=== PATIENT | male | born 1970 | race Caucasian/White ===

== ENCOUNTER 2019-12-31 10:40 | Emergency (ER) | payer OTHER, SELFPAY ==
[2019-12-31 10:47] VITALS: BP 136/79; PULSE 79; RESP 18; TEMP 36.7; O2SAT 97; BMI 34.3
--- NOTE | 2019-12-31 10:48 | CTR_ITS ---
PROCEDURE INFORMATION: Exam: CTA Right Lower Extremity With Contrast Exam date and time: 12/31/2019 10:52 AM Age: 49 years old Clinical indication: Injury or trauma; Other: Laceration; Foreign body involvement not specified; Injury date: Today; Injury details: 49-year-old gentleman was taken down a broken glass window and pushed it out. Part of the glass came back towards him and he reflexively kicked the glass. He sustained a cut to his right lower leg and according to the ambulance crew it appeared he had arterial bleeding. ; Additional info: Right leg cut injury-continued bleeding-art damage possible TECHNIQUE: Imaging protocol: CTA images of the Right lower extremity with intravenous contrast using CT angiography protocol. 3D rendering (Not supervised by radiologist): MIP reconstructed images were created by the technologist. Radiation optimization: All CT scans at this facility use at least one of these dose optimization techniques: automated exposure control; mA and/or kV adjustment per patient size (includes targeted exams where dose is matched to clinical indication); or iterative reconstruction. Contrast material: OMNI 350; Contrast volume: 95 ml; Contrast route: INTRAVENOUS (IV); COMPARISON: No relevant prior studies available. RADIATION DOSE METRICS: Total DLP (mGy-cm): 538.4 FINDINGS: Right femoral/popliteal arteries: No occlusion or significant stenosis. Right infrapopliteal arteries: The right posterior tibial artery appears to supply the forefoot. The right peroneal artery supplies the lateral hindfoot. Other arteries: Multiple foci of apparent (delayed images not obtained) contrast extravasation noted adjacent to the distal anterior tibial artery at the level of the injury with subsequent short segment occlusion (presumed transsection) of the anterior tibial artery with short segment reconstitution just above the level of the ankle, and reocclusion at the level of the ankle (series 203, image 87), with lack of identification of enhancement within the vessel in the foot. Early draining veins are present extending from the injury site to the proximal popliteal vein, the upper limits of the study. Bones/joints: Bony hypertrophy of the distal tibia above the distal tibiofibular articulation with pseudoarthrosis (series 3, image 176). Soft tissues: Saturated bandaging overlying the distal anterior lower leg. Mild motion blurring at this site of injury. Small sub dermal calcifications bilateral anterior lower [place]. [place] [address] IMPRESSION: 1. Arterial injury of the distal anterior tibial artery, with transsection/occlusions/reconstitution as described. 2. Active arterial contrast extravasation at the injury site. 3. Early draining veins at the arterial injury site suggesting small caliber arteriovenous fistula. Radiation Dose CTDIVOL = (mGy): DLP = 538.4 (mGy-cm)
[2019-12-31 11:13] LABS: Basophils # 0.1 10^3/uL (0.0-0.1); Eosinophils # 0.1 10^3/uL (0.0-0.8); Eosinophils % 1.5 %; Hematocrit 46.9 % (42.0-52.0); Hemoglobin 15.7 g/dL (11.7-16.6); Lymphocytes % 17.1 %; Mean Corpuscular HGB Conc 33.5 g/dL (30.0-36.0); Mean Corpuscular Hemoglobin 33.8 pg (28.0-34.0); Mean Corpuscular Volume 101.1 fL (80-94); Mean Platelet Volume 11.8 fL (7.4-10.4); Monocytes # 0.4 10^3/uL (0.2-0.9); Monocytes % 6.6 %; Neutrophils # 4.42 10^3/uL (1.8-7.7); Neutrophils % 73.5 %; Nucleated Red Blood Cells % 0 %; Platelet Count 125 10^3/cmm (130-400); Red Blood Count 4.64 10^6/uL (4.1-5.3); Red Cell Distribution Width 13.4 % (12.1-15.1)
[2019-12-31] MEDS: ceFAZolin 1,000 MG in sodium chloride 0.9% (plus) 50 ML 100 MG IV (11:15)
[2019-12-31] MEDS: sodium chloride 0.9% 1,000 ML 999 ML IV (11:16)
[2019-12-31 11:19] VITALS: BP 168/105; PULSE 99; RESP 18; O2SAT 99
--- NOTE | 2019-12-31 11:24 | ED_ITS ---
HPI - Extremity Problem General: Chief complaint: Extremity Injury, Lower Stated complaint: LACERATION TO LEFT LEG Time Seen by Provider: 12/31/19 11:21 Source: patient Mode of arrival: EMS Limitations: no limitations History of Present Illness: HPI Narrative: 49-year-old gentleman was taken down a broken glass window and pushed it out. Part of the glass came back towards him and he reflexively kicked the glass. He sustained a cut to his right lower leg and according to the ambulance crew it appeared he had arterial bleeding. He had a tourniquet applied was brought in the emergency department for evaluation. No other injuries. Onset (ago): hour(s) (2) Location: right and lower extremity Associated symptoms: Deny fever(s) or rash Review of Systems General: Reports: 10 or more systems reviewed and unremarkable except in HPI and below Const: Denies: fever(s), chills or body aches Eyes: Denies: change in vision or blurry vision ENMT: Denies: throat pain, enlarged tonsils, odynophagia, hoarseness, mouth pain or swelling of lips/tongue Card: Denies: palpitations, irregular heart rhythm, edema or swelling of feet/ankles Resp: Denies: dyspnea, productive cough or non-productive cough GI: Denies: abdominal pain, nausea or vomiting : Denies: flank pain, dysuria, urinary frequency, urinary urgency or urinary hesitancy Musc: Denies: neck pain, back pain or extremity swelling Skin/Breast: Reports: other (Laceration); Denies: rash, pruritus or erythema Neuro: Denies: headache(s), numbness in extremities or weakness in extremities Endo: Denies: polyuria, polydipsia or tired all the time Physical Exam Const: COMMON NORMALS: no acute distress, average body habitus, patient oriented x3, no limitations, healthy appearing, alert and well nourished HENMT: COMMON NORMALS: normocephalic, atraumatic and moist oral mucous membranes HEAD & SCALP: normocephalic and atraumatic Neck/C-Spine: COMMON NORMALS: full ROM, supple, no meningeal signs, no JVD and No carotid bruits Chest: COMMONS NORMALS: normal inspection of the chest and normal palpation of entire chest wall Resp: COMMON NORMALS: normal respiratory effort, No retractions, No use of accessory muscles, clear to auscultation bilaterally and percussion normal AUSCULTATION: clear to auscultation bilaterally PERCUSSION: percussion normal Cardio: COMMON NORMALS: no JVD, regular rate, regular rhythm, S1 normal heart sound present, S2 normal heart sound present, No gallops present (Cardio), No clicks present (Cardio), No murmurs present (Cardio), No rub (Cardio) and Peripheral pulses 2+ throughout RATE: regular rate RHYTHM: regular rhythm HEART SOUNDS: S1 normal heart sound present and S2 normal heart sound present PERIPHERAL PULSES: Peripheral pulses 2+ throughout GI: COMMON NORMALS: Normal to inspection, nondistended, normoactive bowel sounds present, Soft to palpation, non-tender, No hepatosplenomegaly present, no masses and no bruits PALPATION: Yes Soft to palpation and Yes No hepatosplenomegaly present Extremity: COMMON NORMALS: normal to inspection, full ROM, capillary refill normal, no calf tenderness and no pedal edema Neuro: COMMON NORMALS: patient oriented x3 SENSORIUM/ORIENTATION: Yes alert MENINGEAL SIGNS: Yes no meningeal signs Skin: COMMON NORMALS: no rashes or lesions noted, no wounds, turgor normal, no jaundice, no petechiae and no mottling NARRATIVE SKIN EXAM: Right lower extremity and a tourniquet. Basilio Steinberg listened and wound dressing taken down. The patient has about a 4 cm laceration with pulsatile bleeding coming out of the wound. It appears to be an arterial injury. Mild tenderness around the wound. Dorsalis pedis difficult to palpate. GENERAL SKIN EXAM: no rashes or lesions noted and turgor normal Course ED course: Patient with an arterial injury to his leg and is transferred to [facility] in [place]. Consultations: Consultation #1: Dr. Armenta, ED physician at [facility] and he kindly accepted the patient to his service. Time: 11:50 Vital Signs: Vital signs: Vital Signs Temperature 98.1 F 12/31/19 12:18 Pulse Rate 89 12/31/19 12:18 Respiratory Rate 20 H 12/31/19 12:18 Blood Pressure 140/101 12/31/19 12:18 Pulse Oximetry 98 12/31/19 12:18 MDM - Extremity (Nontraumatic) MDM Narrative: Medical decision making narrative: 49 year old male who kicked a falling glass window and sustained an arterial injury to his right lower leg. He is transferred to [facility] for further evaluation and management Medical Records: Attestation: I reviewed the patient's medical records. Lab Data: Attestation: I reviewed the patient's lab results. Labs: Lab Results 12/31/19 12/31/19 12/31/19 Range/Units 11:05 11:05 11:05 WBC 6.0 (4.0-10.0) 10^3/ uL RBC 4.64 (4.1-5.3) 10^6/u L Hgb 15.7 (11.7-16.6) g/dL Hct 46.9 (42.0-52.0) % MCV 101.1 H (80-94) fL MCH 33.8 (28.0-34.0) pg MCHC 33.5 (30.0-36.0) g/dL RDW 13.4 (12.1-15.1) % Plt Count 125 L (130-400) 10^3/c mm MPV 11.8 H (7.4-10.4) fL Neut % (Auto) 73.5 % Lymph % (Auto) 17.1 % Rutherford % (Auto) 6.6 % Eos % (Auto) 1.5 % Baso % (Auto) 1.0 % Neut # (Auto) 4.42 (1.8-7.7) 10^3/u L Lymph # (Auto) 1.0 (0.8-4.8) 10^3/u L Rutherford # (Auto) 0.4 (0.2-0.9) 10^3/u L Eos # (Auto) 0.1 (0.0-0.8) 10^3/u L Baso # (Auto) 0.1 (0.0-0.1) 10^3/u L Nucleated RBC % (a uto) 0 % Nucleated RBCs # 0.0 /100WBC PT 13.40 (12.1-14.9) SECO NDS INR 0.99 (0.8-1.2) APTT 24.0 (23.9-36.7) SECO NDS Sodium 134 L (136-145) mmol/L Potassium 4.5 (3.5-5.1) mmol/L Chloride 101 (98-107) mmol/L Carbon Dioxide 20 L (22-29) mmol/L Anion Gap 17.5 (5-19) BUN 8 (6-20) mg/dL Creatinine 0.6 L (0.7-1.2) mg/dL GFR Calculation 142.6 H (90-130) mL/min Glucose 126 H (65-115) mg/dL Calculated Osmolal ity 278 L (285-295) mOsm/k g Calcium 8.7 (8.5-10.5) mg/dL Total Bilirubin 0.3 (0.15-1.2) mg/dL AST 305 H (0-40) U/L ALT 286 H (0-41) U/L Alkaline Phosphata se 102 (40-130) IU/L Total Protein 7.8 (6.6-8.7) g/dL Albumin 3.8 (3.5-5.2) g/dL Globulin 4.0 (1.3-4.6) g/dL Imaging Data^: Other CT: Attestation: I personally reviewed and interpreted this imaging study as follows: Radiologist's impression: [place] [address] CT Scan Report Signed with Addenda Patient: Ravi Cook #: [id number] : 1970Acct#:[id number] Age/Sex: 49 / MADM Date: 12/31/19 [facility]: Attending Dr: Ordering Provider/Ordering MD: Ricardo Davis Date of Service: 12/31/19 Procedure(s): [place] [address] Accession Number(s): [id number] Report Number: [id number]/[place] [address] [address] Rudy Barraza reported awareness of the findings by telephone on 12/31/2019 12:50 PM CDT. Radiation Dose CTDIVOL = (mGy): DLP = 538.4 (mGy-cm) Addendum Dictated By: Danilo Membreno MD Addendum Signed By: Danilo Membreno Date/Time:12/31/19 1253 Addendum Cosigned By: PROCEDURE INFORMATION: Exam: CTA Right Lower Extremity With Contrast Exam date and time: 12/31/2019 10:52 AM Age: 49 years old Clinical indication: Injury or trauma; Other: Laceration; Foreign body involvement not specified; Injury date: Today; Injury details: 49-year-old gentleman was taken down a broken glass window and pushed it out. Part of the glass came back towards him and he reflexively kicked the glass. He sustained a cut to his right lower leg and according to the ambulance crew it appeared he had arterial bleeding. ; Additional info: Right leg cut injury-continued bleeding-art damage possible TECHNIQUE: Imaging protocol: CTA images of the Right lower extremity with intravenous contrast using CT angiography protocol. 3D rendering (Not supervised by radiologist): MIP reconstructed images were created by the technologist. Radiation optimization: All CT scans at this facility use at least one of these dose optimization techniques: automated exposure control; mA and/or kV adjustment per patient size (includes targeted exams where dose is matched to clinical indication); or iterative reconstruction. Contrast material: OMNI 350; Contrast volume: 95 ml; Contrast route: INTRAVENOUS (IV); COMPARISON: No relevant prior studies available. RADIATION DOSE METRICS: Total DLP (mGy-cm): 538.4 FINDINGS: Right femoral/popliteal arteries: No occlusion or significant stenosis. Right infrapopliteal arteries: The right posterior tibial artery appears to supply the forefoot. The right peroneal artery supplies the lateral hindfoot. Other arteries: Multiple foci of apparent (delayed images not obtained) contrast extravasation noted adjacent to the distal anterior tibial artery at the level of the injury with subsequent short segment occlusion (presumed transsection) of the anterior tibial artery with short segment reconstitution just above the level of the ankle, and reocclusion at the level of the ankle (series 203, image 87), with lack of identification of enhancement within the vessel in the foot. Early draining veins are present extending from the injury site to the proximal popliteal vein, the upper limits of the study. Bones/joints: Bony hypertrophy of the distal tibia above the distal tibiofibular articulation with pseudoarthrosis (series 3, image 176). Soft tissues: Saturated bandaging overlying the distal anterior lower leg. Mild motion blurring at this site of injury. Small sub dermal calcifications bilateral anterior lower [place]. [place] [address] IMPRESSION: 1. Arterial injury of the distal anterior tibial artery, with transsection/occlusions/reconstitution as described. 2. Active arterial contrast extravasation at the injury site. 3. Early draining veins at the arterial injury site suggesting small caliber arteriovenous fistula. Radiation Dose CTDIVOL = (mGy): DLP = 538.4 (mGy-cm) Dictated By:Danilo Membreno MD Signed By:Danilo Membreno MDSigned Date/Time:12/31/19 1245 DD/ 1244 Discharge Plan Discharge Patient Disposition: Xfer Short-Term Hosp Clinical Impression: Laceration of anterior tibial artery, right leg, initial encounter Discharge Orders: Transfer Out of Facility (Order); Ordered 01/01/20 Ordered By: Rudy Barraza Interventions: ED Discharge Assessment Last Done: 12/31/19 12:18 ED Charges Last Done: 12/31/19 12:18 Discharge Date/Time: 12/31/19 12:20 Coding Level of Care Code ED Research Quality Assurance Analyst for Chg Fwd Exam Comprehensive
[2019-12-31 11:27] LABS: INR 0.99 (0.8-1.2)
[2019-12-31] MEDS: iohexol 350 mg/mL 100 mL Btl IV (11:29)
[2019-12-31 11:38] LABS: Alanine Aminotransferase 286 U/L (0-41); Albumin Level 3.8 g/dL (3.5-5.2); Alkaline Phosphatase 102 IU/L (40-130); Anion Gap 17.5 (5-19); Aspartate Amino Transferase 305 U/L (0-40); Blood Urea Nitrogen 8 mg/dL (6-20); Calcium 8.7 mg/dL (8.5-10.5); Carbon Dioxide 20 mmol/L (22-29); Chloride 101 mmol/L (98-107); Glomerular Filtration Rate 142.6 mL/min (90-130); Glucose 126 mg/dL (65-115); Osmolality Calculated 278 mOsm/kg (285-295); Potassium 4.5 mmol/L (3.5-5.1); Sodium 134 mmol/L (136-145); Total Bilirubin 0.3 mg/dL (0.15-1.2); Total Protein 7.8 g/dL (6.6-8.7)
[2019-12-31] MEDS: tetanus-dipt-pertussis 0.5 mL SDV IM (11:43)
[2019-12-31 12:18] VITALS: BP 140/101; PULSE 89; RESP 20; TEMP 36.7; O2SAT 98
== END 2019-12-31 12:20 | disposition short-term general hospital (02) ==
PROVIDERS: Physician Assistant; Emergency Provider Family Medicine
DX: S85.141A Laceration of anterior tibial artery, right leg, initial encounter (principal); W25.XXXA Contact with sharp glass, initial encounter; Z23 Encounter for immunization
CPT/HCPCS: 12345; 73706; 80053; 85025; 85610; 85730; 90471; 90715; 96365; 99283; 99285; J0690; J7030; Q9967

== ENCOUNTER 2020-06-07 12:57 | Observation (INO) | payer OTHER, SELFPAY ==
[2020-06-07] VITALS (7 sets, daily range): BP systolic 135–144; BP diastolic 87–94; PULSE 96–120; RESP 18–35; TEMP 36.3–37.2; O2SAT 96–97; BMI 35.2
--- NOTE | 2020-06-07 13:51 | XR_ITS ---
WS: [id number] Portable AP upright chest, 06/07/2020 Clinical Data: fluid overload Comparison: None. Findings: No nodules, masses or effusions are seen. The heart is normal. The pulmonary vascularity is not increased. No pneumonia or pneumothorax is seen. There is an old fracture of the midshaft of the right clavicle. XR/XR chest 1V portable [id number] Impression: Negative chest.
--- NOTE | 2020-06-07 13:52 | ECG_ITS ---
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 Measurements Intervals [place] Rate: 105 P: 66 [place]: 154 QRS: 223 QRSD: 84 T: 45 QT: 340 QTc: 451 Interpretive Statements SINUS TACHYCARDIA RIGHT AXIS DEVIATION [QRS AXIS > 100] PATTERN CONSISTENT WITH PULMONARY DISEASE No previous ECG available for comparison Electronically Signed On 06-07-2020 19:51:15 CDT by Sher Gallegos M.D. [email or web address]
[2020-06-07 14:38] LABS: Add Urine Microscopic? YES; Bilirubin Urine 1+ (Negative); Blood Urine Neg (Negative); Glucose Urine UA Norm (Normal); Ketones Urine 1+ (Negative); Leukocyte Esterase Urine Negative (Negative); Nitrate Urine Negative (Negative); Protein Urine Trace (Negative); Urine Appearance Cloudy (CLEAR); Urine Color Dark Yellow (Yellow); Urobilinogen Urine 4 mg/dL (Negative); pH Urine 5 (5-7)
[2020-06-07 14:41] LABS: Basophils # 0.1 10^3/uL (0.0-0.1); Basophils % 1.3 %; Eosinophils # 0.1 10^3/uL (0.0-0.8); Hematocrit 41.2 % (42.0-52.0); Hemoglobin 13.5 g/dL (11.7-16.6); Lymphocytes # 1.9 10^3/uL (0.8-4.8); Lymphocytes % 21.3 %; Mean Corpuscular HGB Conc 32.8 g/dL (30.0-36.0); Mean Corpuscular Hemoglobin 32.8 pg (28.0-34.0); Mean Platelet Volume 11.2 fL (7.4-10.4); Monocytes # 0.6 10^3/uL (0.2-0.9); Neutrophils # 5.98 10^3/uL (1.8-7.7); Neutrophils % 69.1 %; Nucleated Red Blood Cells % 0 %; Platelet Count 197 10^3/cmm (130-400); Red Blood Count 4.12 10^6/uL (4.1-5.3); Red Cell Distribution Width 14.6 % (12.1-15.1); White Blood Count 8.7 10^3/uL (4.0-10.0)
[2020-06-07 14:46] LABS: Add Urine Culture? No; Bacteria Urine 1+ /hpf; Mucus Urine 1+ /hpf
--- NOTE | 2020-06-07 14:57 | W.ED.GENADLT ---
Documented by User: DELORIS Martinez 06/07/20 16:34 HPI - General Adult General: Chief complaint: General Medical Stated complaint: ABD SWELLING Time Seen by Provider: 06/07/20 14:28 Source: patient Mode of arrival: ambulatory Limitations: no limitations History of Present Illness: HPI narrative: Patient is a 49-year-old male with no known medical conditions here for complaints of abdominal swelling and distention. Patient states that 3 weeks ago he began noticing swelling to his bilateral lower extremities. He states since that time swelling has progressed and reports almost overnight severe abdominal distention. He complains of trouble urinating. He is not having any abdominal pain (other than tightness and discomfort), nausea, vomiting, diarrhea. Has not noticed any yellowing to the skin or eyes. He admittedly is a chronic alcohol drinker-has not drank in 3 months apart from last night when he had two beers. He reports shortness of breath with exertion. He is not having any chest pain. Onset (ago): day(s) Location: abdomen Relieving factors: none Exacerbating factors: none Associated symptoms: Deny chest pain, dyspnea, headache(s), nausea, rash, palpitations, syncope or vomiting Review of Systems General: Reports: 10 or more systems reviewed and unremarkable except in HPI and below Const: Denies: fever(s) or chills Eyes: Denies: change in vision or blurry vision Card: Reports: edema, swelling of feet/ankles and dyspnea on exertion; Denies: chest pain, palpitations, irregular heart rhythm, lightheadedness, syncope, pre-syncope or orthopnea Resp: Denies: dyspnea, productive cough or pain on inspiration GI: Reports: other (abdominal distention); Denies: abdominal pain, nausea, vomiting, heartburn or diarrhea : Reports: difficulty urinating; Denies: flank pain or dysuria Musc: Reports: extremity swelling; Denies: neck pain, back pain or joint pain Skin/Breast: Denies: rash Neuro: Denies: headache(s), numbness in extremities, weakness in extremities, sensory changes or dizziness Physical Exam Const: COMMON NORMALS: no acute distress, patient oriented x3, no limitations and alert NUTRITIONAL APPEARANCE: obese ORIENTATION/CONSCIOUSNESS: Yes awake, Yes oriented to person, Yes oriented to place and Yes oriented to time HENMT: COMMON NORMALS: normocephalic and atraumatic HEAD & SCALP: normocephalic and atraumatic Chest: COMMONS NORMALS: normal inspection of the chest and normal palpation of entire chest wall Resp: COMMON NORMALS: normal respiratory effort and clear to auscultation bilaterally AUSCULTATION: clear to auscultation bilaterally Cardio: COMMON NORMALS: regular rhythm RATE: tachycardic (mild) RHYTHM: regular rhythm GI: INSPECTION: Yes Anasarca, Yes abdominal distension and Yes Fluid wave present PALPATION: Yes Firmness to palpation present (GI) PERCUSSION: Fluid wave present Extremity: GENERAL: Yes edema (bilateral pitting edema) Neuro: COMMON NORMALS: patient oriented x3 SENSORIUM/ORIENTATION: Yes alert, Yes oriented to person, Yes oriented to place and Yes oriented to time Skin: COMMON NORMALS: no rashes or lesions noted GENERAL SKIN EXAM: no rashes or lesions noted Course Consultations: Consultation #1: Dr. Eastman-admit to obs Time: 16:33 Vital Signs: Vital signs: Vital Signs Temperature 97.3 F L 06/07/20 13:06 Pulse Rate 102 H 06/07/20 16:10 Respiratory Rate 21 H 06/07/20 16:10 Blood Pressure 136/91 06/07/20 16:10 Pulse Oximetry 96 06/07/20 16:10 MDM - General Adult MDM Narrative: Medical decision making narrative: Patient here with new onset abdominal ascites/anasarca. At this time history and clinical picture seems consistent with liver cirrhosis and portal venous hypertension. At this time I do not have any suspicion for SBP. Patient has no fever, altered mental status, no abdominal pain, diarrhea, no leukocytosis, no metabolic acidosis. Paracentesis was ordered however radiology has left for the evening. I spoke with Dr. Eastman and he is comfortable having the paracentesis performed in the morning. Lab Data: Labs: Lab Results 06/07/20 06/07/20 06/07/20 Range/Units 14:11 14:30 14:30 WBC 8.7 (4.0-10.0) 10^3/ uL RBC 4.12 (4.1-5.3) 10^6/u L Hgb 13.5 (11.7-16.6) g/dL Hct 41.2 L (42.0-52.0) % MCV 100.0 H (80-94) fL MCH 32.8 (28.0-34.0) pg MCHC 32.8 (30.0-36.0) g/dL RDW 14.6 (12.1-15.1) % Plt Count 197 (130-400) 10^3/c mm MPV 11.2 H (7.4-10.4) fL Neut % (Auto) 69.1 % Lymph % (Auto) 21.3 % [place] % (Auto) 7.0 % Eos % (Auto) 1.0 % Baso % (Auto) 1.3 % Neut # (Auto) 5.98 (1.8-7.7) 10^3/u L Lymph # (Auto) 1.9 (0.8-4.8) 10^3/u L [place] # (Auto) 0.6 (0.2-0.9) 10^3/u L Eos # (Auto) 0.1 (0.0-0.8) 10^3/u L Baso # (Auto) 0.1 (0.0-0.1) 10^3/u L Nucleated RBC % (a uto) 0 % Nucleated RBCs # 0.0 /100WBC PT (12.1-14.9) SECO NDS INR (0.8-1.2) APTT (23.9-36.7) SECO NDS Sodium 130 L (136-145) mmol/L Potassium 3.5 (3.5-5.1) mmol/L Chloride 95 L (98-107) mmol/L Carbon Dioxide 26 (22-29) mmol/L Anion Gap 12.5 (5-19) BUN 5 L (6-20) mg/dL Creatinine 0.6 L (0.7-1.2) mg/dL GFR Calculation 142.6 H (90-130) mL/min Glucose 107 (65-115) mg/dL Calculated Osmolal ity 268 L (285-295) mOsm/k g Lactic Acid (0.5-2.2) mmol/L Calcium 7.9 L (8.5-10.5) mg/dL Total Bilirubin 1.1 (0.15-1.2) mg/dL AST 72 H (0-40) U/L ALT 23 (0-41) U/L Alkaline Phosphata se 102 (40-130) IU/L Troponin T Baselin e (0-15) ng/L NT-Pro-B Natriuret Pep 100 (0-125) pg/mL Total Protein 8.4 (6.6-8.7) g/dL Albumin 2.6 L (3.5-5.2) g/dL Globulin 5.8 H (1.3-4.6) g/dL Urine Color Dark yellow (Yellow) Urine Appearance Cloudy (CLEAR) Urine pH 5 (5-7) Ur Specific Gravit y 1.020 (1.005-1.030) Urine Protein Trace (Negative) Urine Glucose (UA) Norm (Normal) Urine Ketones 1+ H (Negative) Urine Blood Neg (Negative) Urine Nitrate Negative (Negative) Urine Bilirubin 1+ H (Negative) Urine Urobilinogen 4 H (Negative) mg/dL Ur Leukocyte Vivian ase Negative (Negative) Urine RBC None (0-2) /hpf Urine WBC None (0-5) /hpf Ur Squamous Epith Cells None (0-5) /hpf Amorphous Sediment Not Reportable Urine Bacteria 1+ H (NONE) /hpf Urine Mucus 1+ /hpf 06/07/20 06/07/20 06/07/20 Range/Units 14:30 14:30 14:30 WBC (4.0-10.0) 10^3/ uL RBC (4.1-5.3) 10^6/u L Hgb (11.7-16.6) g/dL Hct (42.0-52.0) % MCV (80-94) fL MCH (28.0-34.0) pg MCHC (30.0-36.0) g/dL RDW (12.1-15.1) % Plt Count (130-400) 10^3/c mm MPV (7.4-10.4) fL Neut % (Auto) % Lymph % (Auto) % [place] % (Auto) % Eos % (Auto) % Baso % (Auto) % Neut # (Auto) (1.8-7.7) 10^3/u L Lymph # (Auto) (0.8-4.8) 10^3/u L [place] # (Auto) (0.2-0.9) 10^3/u L Eos # (Auto) (0.0-0.8) 10^3/u L Baso # (Auto) (0.0-0.1) 10^3/u L Nucleated RBC % (a uto) % Nucleated RBCs # /100WBC PT 17.40 H (12.1-14.9) SECO NDS INR 1.38 H (0.8-1.2) APTT 36.8 H (23.9-36.7) SECO NDS Sodium (136-145) mmol/L Potassium (3.5-5.1) mmol/L Chloride (98-107) mmol/L Carbon Dioxide (22-29) mmol/L Anion Gap (5-19) BUN (6-20) mg/dL Creatinine (0.7-1.2) mg/dL GFR Calculation (90-130) mL/min Glucose (65-115) mg/dL Calculated Osmolal ity (285-295) mOsm/k g Lactic Acid 1.5 (0.5-2.2) mmol/L Calcium (8.5-10.5) mg/dL Total Bilirubin (0.15-1.2) mg/dL AST (0-40) U/L ALT (0-41) U/L Alkaline Phosphata se (40-130) IU/L Troponin T Baselin e 10 (0-15) ng/L NT-Pro-B Natriuret Pep (0-125) pg/mL Total Protein (6.6-8.7) g/dL Albumin (3.5-5.2) g/dL Globulin (1.3-4.6) g/dL Urine Color (Yellow) Urine Appearance (CLEAR) Urine pH (5-7) Ur Specific Gravit y (1.005-1.030) Urine Protein (Negative) Urine Glucose (UA) (Normal) Urine Ketones (Negative) Urine Blood (Negative) Urine Nitrate (Negative) Urine Bilirubin (Negative) Urine Urobilinogen (Negative) mg/dL Ur Leukocyte Vivian ase (Negative) Urine RBC (0-2) /hpf Urine WBC (0-5) /hpf Ur Squamous Epith Cells (0-5) /hpf Amorphous Sediment Urine Bacteria (NONE) /hpf Urine Mucus /hpf Imaging Data^: CXR: Radiologist's impression: [address] [address] XRay Report Signed Patient: Dwayne Cook Unit #: [id number] : 1970 Age/Sex: 49 / M ADM Date: 06/07/20 Loc: ER Room/Bed: Attending Dr: Ordering Provider/Ordering MD: Carmel Canales Date of Service: 06/07/20 Procedure(s): XR chest 1V portable 36066 Accession Number(s): [id number] Report Number: [id number] WS: [id number] Portable AP upright chest, 06/07/2020 Clinical Data: fluid overload Comparison: None. Findings: No nodules, masses or effusions are seen. The heart is normal. The pulmonary vascularity is not increased. No pneumonia or pneumothorax is seen. There is an old fracture of the midshaft of the right clavicle. XR/XR chest 1V portable [id number] Impression: Negative chest. Dictated By: Virginia Cooley MD Signed By: Virginia Cooley MD Signed Date/Time: 06/07/20 1358 DD/ 1357 CT Abd/Pel: Radiologist's impression: [place] [address] CT Scan Report Signed Patient: Dwayne Cook Unit #: [id number] : 1970 Age/Sex: 49 / M ADM Date: 06/07/20 Loc: ER Room/Bed: Attending Dr: Ordering Provider/Ordering MD: Carmel Canales Date of Service: 06/07/20 Procedure(s): CT abdomen pelvis w con* [id number] Accession Number(s): [id number] Report Number: [id number] WS: [id number] CT ABDOMEN AND PELVIS WITH CONTRAST HISTORY: new onset ascites TECHNIQUE: Imaging performed of the abdomen and pelvis with IV contrast. Single phase imaging of the abdomen. Coronal and sagittal reformats are submitted. All CT scans at [facility] use at least one of these dose optimization techniques: automated exposure control; mA and/or kV adjustment per patient size (includes targeted exams where dose is matched to clinical indication); or iterative reconstruction. IV CONTRAST: Omnipaque 300; 95 mL IV. Oral contrast: No DLP: 2033.29 mGy.cm COMPARISON: None available. Lower thorax: Small bilateral pleural effusions. Heart is normal size. Moderate size hiatal hernia. Liver/biliary system: Liver is moderately enlarged. Low attenuation throughout the liver and the surface of the liver is slightly irregular. Caudate lobe is not enlarged. Gallbladder: Normal. No gallstones or wall thickening. No pericholecystic fluid. Pancreas: Normal. Spleen: Spleen is enlarged at 15 cm in length. Adrenal glands: Normal. Right kidney: 5 mm cortical cyst lower pole. No obstruction. Left kidney: Normal. Aorta: Mild atherosclerosis with no aneurysm. Lymphadenopathy: There are small shoddy retroperitoneal lymph nodes. The largest lymph node is aortocaval measuring 10 mm. Free fluid: There is a large amount of ascites throughout the abdomen and pelvis. GI tract: Unremarkable. Abdominal wall: Unremarkable abdominal wall. No hernia. Diffuse soft tissue anasarca throughout the abdomen and pelvis. Pelvis: Normal. Bones: No osteoblastic or osteolytic bone disease. CT/CT abdomen pelvis w con* [id number] IMPRESSION: 1. Large amount of ascites with mesenteric edema and soft tissue anasarca. 2. Mild hepatosplenomegaly. Suspect cirrhosis and portal venous hypertension. 3. Small bilateral pleural effusions. Dictated By: Delicia Mnoaco DO Signed By: Delicia Monaco DO Signed Date/Time: 06/07/201527 DD/ 16 Discharge Plan Discharge Patient Disposition: Placed in Observation Clinical Impression: Chronic alcohol use Abdominal ascites Qualifiers: Ascites type: due to alcoholic cirrhosis Qualified Code(s): K70.31 - Alcoholic cirrhosis of liver with ascites Coding Level of Care Code ED Seed Collector for Chg Fwd Exam Comprehensive Documented by User: Stephon Colunga MD 06/07/20 17:08 HPI - General Adult General: Chief complaint: General Medical Stated complaint: ABD SWELLING Time Seen by Provider: 06/07/20 14:28 Course Vital Signs: Vital signs: Vital Signs Temperature 97.3 F L 06/07/20 13:06 Pulse Rate 102 H 06/07/20 16:10 Respiratory Rate 21 H 06/07/20 16:10 Blood Pressure 136/91 06/07/20 16:10 Pulse Oximetry 96 06/07/20 16:10 MDM - General Adult MDM Narrative: Medical decision making narrative: This is Dr. Colunga I took over care of this patient and discussed with Dr. Walker who accepts for admission. Lab Data: Labs: Lab Results 06/07/20 06/07/20 06/07/20 Range/Units 14:11 14:30 14:30 WBC 8.7 (4.0-10.0) 10^3/ uL RBC 4.12 (4.1-5.3) 10^6/u L Hgb 13.5 (11.7-16.6) g/dL Hct 41.2 L (42.0-52.0) % MCV 100.0 H (80-94) fL MCH 32.8 (28.0-34.0) pg MCHC 32.8 (30.0-36.0) g/dL RDW 14.6 (12.1-15.1) % Plt Count 197 (130-400) 10^3/c mm MPV 11.2 H (7.4-10.4) fL Neut % (Auto) 69.1 % Lymph % (Auto) 21.3 % [place] % (Auto) 7.0 % Eos % (Auto) 1.0 % Baso % (Auto) 1.3 % Neut # (Auto) 5.98 (1.8-7.7) 10^3/u L Lymph # (Auto) 1.9 (0.8-4.8) 10^3/u L [place] # (Auto) 0.6 (0.2-0.9) 10^3/u L Eos # (Auto) 0.1 (0.0-0.8) 10^3/u L Baso # (Auto) 0.1 (0.0-0.1) 10^3/u L Nucleated RBC % (a uto) 0 % Nucleated RBCs # 0.0 /100WBC PT (12.1-14.9) SECO NDS INR (0.8-1.2) APTT (23.9-36.7) SECO NDS Sodium 130 L (136-145) mmol/L Potassium 3.5 (3.5-5.1) mmol/L Chloride 95 L (98-107) mmol/L Carbon Dioxide 26 (22-29) mmol/L Anion Gap 12.5 (5-19) BUN 5 L (6-20) mg/dL Creatinine 0.6 L (0.7-1.2) mg/dL GFR Calculation 142.6 H (90-130) mL/min Glucose 107 (65-115) mg/dL Calculated Osmolal ity 268 L (285-295) mOsm/k g Lactic Acid (0.5-2.2) mmol/L Calcium 7.9 L (8.5-10.5) mg/dL Total Bilirubin 1.1 (0.15-1.2) mg/dL AST 72 H (0-40) U/L ALT 23 (0-41) U/L Alkaline Phosphata se 102 (40-130) IU/L Troponin T Baselin e (0-15) ng/L NT-Pro-B Natriuret Pep 100 (0-125) pg/mL Total Protein 8.4 (6.6-8.7) g/dL Albumin 2.6 L (3.5-5.2) g/dL Globulin 5.8 H (1.3-4.6) g/dL Urine Color Dark yellow (Yellow) Urine Appearance Cloudy (CLEAR) Urine pH 5 (5-7) Ur Specific Gravit y 1.020 (1.005-1.030) Urine Protein Trace (Negative) Urine Glucose (UA) Norm (Normal) Urine Ketones 1+ H (Negative) Urine Blood Neg (Negative) Urine Nitrate Negative (Negative) Urine Bilirubin 1+ H (Negative) Urine Urobilinogen 4 H (Negative) mg/dL Ur Leukocyte Vivian ase Negative (Negative) Urine RBC None (0-2) /hpf Urine WBC None (0-5) /hpf Ur Squamous Epith Cells None (0-5) /hpf Amorphous Sediment Not Reportable Urine Bacteria 1+ H (NONE) /hpf Urine Mucus 1+ /hpf 06/07/20 06/07/20 06/07/20 Range/Units 14:30 14:30 14:30 WBC (4.0-10.0) 10^3/ uL RBC (4.1-5.3) 10^6/u L Hgb (11.7-16.6) g/dL Hct (42.0-52.0) % MCV (80-94) fL MCH (28.0-34.0) pg MCHC (30.0-36.0) g/dL RDW (12.1-15.1) % Plt Count (130-400) 10^3/c mm MPV (7.4-10.4) fL Neut % (Auto) % Lymph % (Auto) % [place] % (Auto) % Eos % (Auto) % Baso % (Auto) % Neut # (Auto) (1.8-7.7) 10^3/u L Lymph # (Auto) (0.8-4.8) 10^3/u L [place] # (Auto) (0.2-0.9) 10^3/u L Eos # (Auto) (0.0-0.8) 10^3/u L Baso # (Auto) (0.0-0.1) 10^3/u L Nucleated RBC % (a uto) % Nucleated RBCs # /100WBC PT 17.40 H (12.1-14.9) SECO NDS INR 1.38 H (0.8-1.2) APTT 36.8 H (23.9-36.7) SECO NDS Sodium (136-145) mmol/L Potassium (3.5-5.1) mmol/L Chloride (98-107) mmol/L Carbon Dioxide (22-29) mmol/L Anion Gap (5-19) BUN (6-20) mg/dL Creatinine (0.7-1.2) mg/dL GFR Calculation (90-130) mL/min Glucose (65-115) mg/dL Calculated Osmolal ity (285-295) mOsm/k g Lactic Acid 1.5 (0.5-2.2) mmol/L Calcium (8.5-10.5) mg/dL Total Bilirubin (0.15-1.2) mg/dL AST (0-40) U/L ALT (0-41) U/L Alkaline Phosphata se (40-130) IU/L Troponin T Baselin e 10 (0-15) ng/L NT-Pro-B Natriuret Pep (0-125) pg/mL Total Protein (6.6-8.7) g/dL Albumin (3.5-5.2) g/dL Globulin (1.3-4.6) g/dL Urine Color (Yellow) Urine Appearance (CLEAR) Urine pH (5-7) Ur Specific Gravit y (1.005-1.030) Urine Protein (Negative) Urine Glucose (UA) (Normal) Urine Ketones (Negative) Urine Blood (Negative) Urine Nitrate (Negative) Urine Bilirubin (Negative) Urine Urobilinogen (Negative) mg/dL Ur Leukocyte Vivian ase (Negative) Urine RBC (0-2) /hpf Urine WBC (0-5) /hpf Ur Squamous Epith Cells (0-5) /hpf Amorphous Sediment Urine Bacteria (NONE) /hpf Urine Mucus /hpf Discharge Plan Discharge Patient Disposition: Placed in Observation Clinical Impression: Chronic alcohol use Abdominal ascites Qualifiers: Ascites type: due to alcoholic cirrhosis Qualified Code(s): K70.31 - Alcoholic cirrhosis of liver with ascites Coding Level of Care Code ED Seed Collector for g Fwd Exam Comprehensive
--- NOTE | 2020-06-07 14:58 | CT_ITS ---
WS: [id number] CT ABDOMEN AND PELVIS WITH CONTRAST HISTORY: new onset ascites TECHNIQUE: Imaging performed of the abdomen and pelvis with IV contrast. Single phase imaging of the abdomen. Coronal and sagittal reformats are submitted. All CT scans at [facility] use at least one of these dose optimization techniques: automated exposure control; mA and/or kV adjustment per patient size (includes targeted exams where dose is matched to clinical indication); or iterativ e reconstruction. IV CONTRAST: Omnipaque 300; 95 mL IV. Oral contrast: No DLP: 2033.29 mGy.cm COMPARISON: None available. Lower thorax: Small bilateral pleural effusions. Heart is normal size. Moderate size hiatal hernia. Liver/biliary system: Liver is moderately enlarged. Low attenuation throughout the liver and the surf huang of the liver is slightly irregular. Caudate lobe is not enlarged. Gallbladder: Normal. No gallstones or wall thickening. No pericholecystic fluid. Pancreas: Normal. Spleen: Spleen is enlarged at 15 cm in length. Adrenal glands: Normal. Right kidney: 5 mm cortical cyst lower pole. No obstruction. Left kidney: Normal. Aorta: Mild atherosclerosis with no aneurysm. Lymphadenopathy: There are small shoddy retroperitoneal lymph nodes. The largest lymph node is aortoc aval measuring 10 mm. Free fluid: There is a large amount of ascites throughout the abdomen and pelvis. GI tract: Unremarkable. Abdominal wall: Unremarkable abdominal wall. No hernia. Diffuse soft tissue anasarca throughout the a bdomen and pelvis. Pelvis: Normal. Bones: No osteoblastic or osteolytic bone disease. CT/CT abdomen pelvis w con* [id number] IMPRESSION: 1. Large amount of ascites with mesenteric edema and soft tissue anasarca. 2. Mild hepatosplenomegaly. Suspect cirrhosis and portal venous hypertension. 3. Small bilateral pleural effusions.
--- NOTE | 2020-06-07 14:58 | PC.NURSE ---
EKG done at 1450 and shown to JOHNATHAN PUENTES.
[2020-06-07 15:02] LABS: Lactic Sepsis W/Reflex 1.5 mmol/L (0.5-2.2)
[2020-06-07 15:07] LABS: Troponin(5th) Baseline 10 ng/L (0-15)
[2020-06-07] MEDS: iohexol 300 mg/mL 100 mL Btl IV (15:11)
[2020-06-07 15:16] LABS: Alanine Aminotransferase 23 U/L (0-41); Albumin Level 2.6 g/dL (3.5-5.2); Alkaline Phosphatase 102 IU/L (40-130); Anion Gap 12.5 (5-19); Aspartate Amino Transferase 72 U/L (0-40); Blood Urea Nitrogen 5 mg/dL (6-20); Calcium 7.9 mg/dL (8.5-10.5); Carbon Dioxide 26 mmol/L (22-29); Chloride 95 mmol/L (98-107); Globulin 5.8 g/dL (1.3-4.6); Glomerular Filtration Rate 142.6 mL/min (90-130); Glucose 107 mg/dL (65-115); NT Pro B Type Natriuretic Pept 100 pg/mL (0-125); Osmolality Calculated 268 mOsm/kg (285-295); Potassium 3.5 mmol/L (3.5-5.1); Sodium 130 mmol/L (136-145); Total Bilirubin 1.1 mg/dL (0.15-1.2); Total Protein 8.4 g/dL (6.6-8.7)
--- NOTE | 2020-06-07 15:52 | ECG_ITS ---
[facility] Test Date: 2020-06-07 Pat Name: Dwayne Cook Department: Room: 254 Gender: Male Recruitment Director: : 1970 Requested By: Carmel Canales Order Number: [id number] Radha MD: Sher Gallegos M.D. Measurements Intervals [place] Rate: 106 P: 66 AR: 150 QRS: 235 QRSD: 90 T: 29 QT: 341 QTc: 454 Interpretive Statements SINUS TACHYCARDIA RIGHT AXIS DEVIATION [QRS AXIS > 100] LOW QRS VOLTAGE IN EXTREMITY LEADS [QRS DEFLECTION < 0.5 mV IN LIMB LEADS] PATTERN CONSISTENT WITH PULMONARY DISEASE Compared to ECG 06/07/2020 14:50:55 Low QRS voltage now present Electronically Signed On 06-07-2020 19:57:02 CDT by Sher Gallegos M.D. [id number]
[2020-06-07 16:20] LABS: INR 1.38 (0.8-1.2)
[2020-06-07 16:21] LABS: Partial Thromboplastin Time 36.8 SECONDS (23.9-36.7)
--- NOTE | 2020-06-07 18:06 | PC.NURSE ---
Tried calling report. Waiting for report to taken.
--- NOTE | 2020-06-07 20:07 | PM.HP ---
Providers/Chief Complaint Admitting Physician: Hiren Eastman Chief Complaint: ABD SWELLING History of Present Illness 49-year-old gentleman without significant past medical history apart from multiple traumatic injuries, formerly heavy drinker, but quit alcohol about 4-5 months ago, reportedly had several beers last night, however, noticed severe swelling of lower extremities and his abdomen over the last several days. Reports has had some chronic swelling on right side due to traumatic injury and repair, however, swelling has been now bilateral and significantly worse. This and the abdominal distention made it more difficult for him to walk. He denies abdominal pain. Has had no fever or chills. Has had no headache, nausea vomiting, diarrhea, cough, shortness of breath. He has been bringing up phlegm ever since reducing the amount that he smokes. In the ER noted findings compatible with liver cirrhosis, portal hypertension, large ascites on CT abdomen pelvis. Observation was requested due to concern that he does not have adequate follow-up to allow for paracentesis before discharge, although radiology has left for the day, and due to rapid progression of his symptoms. He has had no signs of sepsis, SBP was not suspected. Vital signs stable. Paracentesis is ordered and he is agreeable to stay. Review of Systems Const: Denies: fever(s), chills, body aches or malaise Eyes: Denies: change in vision or eye redness ENMT: Denies: throat pain, oral sores or ear or mastoid pain Card: Reports: edema and dyspnea on exertion; Denies: chest pain or pre-syncope Resp: Denies: dyspnea, productive cough, change in phlegm color or hemoptysis GI: Denies: abdominal pain, nausea, vomiting, diarrhea, constipation, hematochezia or melena : Denies: flank pain, difficulty urinating, urinary frequency or hematuria Musc: Denies: back pain, joint swelling or joint redness Skin/Breast: Denies: rash, sores or new lesions Neuro: Denies: headache(s), numbness in extremities, weakness in extremities, dizziness, confusion or seizure-like activity Endo: Denies: polyuria or polydipsia Kushal/Lymph: Denies: easy bleeding or purpura All/Imm: Denies: urticaria, throat swelling or tongue swelling Medications/Allergies Home Medications Medication Instructions Recorded Confirmed Last Taken Type Centrum 1 tab PO DAILY 03/31/21 03/31/21 03/30/21 History Probiotic 1 tab PO DAILY 06/07/20 06/07/20 06/06/20 History calcium 1 tab PO DAILY 06/07/20 06/07/20 06/06/20 History ibuprofen 200 - 400 mg PO Q6H PRN 06/07/20 06/07/20 06/06/20 History Allergies Allergy/AdvReac Type Severity Reaction Status Date / Time procaine [From Novocain] Allergy ALGY-Anaphy Verified 06/07/20 13:10 laxis PFSH Acute PFSH: Medical History Alcohol abuse Contact with [place] as cause of accidental injury Rib fractures Right ankle injury Smoking addiction Surgical History History of ankle surgery Family History Father Emphysema lung Stroke Social History Alcohol intake: former Former alcohol use details: States quit 4-5 months ago, although in ER reported several beers last nigh Substance/Drug Use: current Other substance/drug use details: States is cutting down Counseling given: Yes Lives independently: Yes Marital status: Vitals/I&O/Wt Last Vital Signs Temp 98.9 F 06/07/20 18:47 Pulse 96 06/07/20 18:47 Resp 28 H 06/07/20 18:47 BP 135/90 06/07/20 18:47 Pulse Ox 96 06/07/20 18:47 Weight last 48 hrs Weight 117.934 kg Physical Exam Const: COMMON NORMALS: no acute distress and patient oriented x3 HENMT: COMMON NORMALS: oropharynx normal Neck/C-Spine: COMMON NORMALS: no JVD Resp: COMMON NORMALS: normal respiratory effort and clear to auscultation bilaterally AUSCULTATION: clear to auscultation bilaterally Cardio: COMMON NORMALS: no JVD, regular rhythm, S1 normal heart sound present, S2 normal heart sound present and No murmurs present (Cardio) RHYTHM: regular rhythm HEART SOUNDS: S1 normal heart sound present and S2 normal heart sound present GI: COMMON NORMALS: Soft to palpation and non-tender INSPECTION: Yes abdominal distension PALPATION: Yes Ascites present Extremity: COMMON NORMALS: no joint enlargement GENERAL: Yes edema (3+) Neuro: COMMON NORMALS: patient oriented x3 and moves all extremities Skin: COMMON NORMALS: no rashes or lesions noted GENERAL SKIN EXAM: no rashes or lesions noted Data : 06/07/20 14:30 06/07/20 14:30 A&P Assessment and plan (1) Abdominal ascites: Rapid progression of ascites. No symptoms to suggest SBP. Appears to have cirrhosis of the liver with portal hypertension as per CT. Abdominal paracentesis. Concern is that he does not have adequate follow-up for outpatient paracentesis. With rapid progression of symptoms, this is requested to be done under observation in the hospital. He will require massive paracentesis. This is ordered. He is agreeable to stay in for the procedure. Status: Acute Qualifiers: Ascites type: due to alcoholic cirrhosis Qualified Code(s): K70.31 - Alcoholic cirrhosis of liver with ascites (2) Leg edema: Bilateral lower extremity edema. Recently with dyspnea on exertion. As well as liver cirrhosis, portal hypertension, will assess echocardiogram to assess for possibility of underlying right heart failure. Status: Acute (3) Smoking addiction: Discussed cessation. He is trying to quit. Will provide nicotine patch. Basis. Continue to encourage. Status: Acute (4) Liver cirrhosis: Suspected alcohol-related cirrhosis, however, will assess TTE to exclude right heart failure, congestive hepatopathy He is planning to follow-up with liver specialist. Understands he will need close follow-up to assess for alternative etiologies, regular follow-up including recurrent ultrasounds, endoscopic evaluation for esophageal, gastric varices, etc. Status: Acute Attestations Medical Necessity Statement*: Place in observation for assessment management of rapid progression of ascites, lower extremity edema, need for likely massive paracentesis, inducement with newly identified liver cirrhosis, assessment for possibility of underlying congestive heart failure. Coding Level of Care Code Acute Dental Technician Instructor for Chg Fwd Diagnoses Abdominal ascites K70.31 Ascites type: due to alcoholic cirrhosis Leg edema R60.0 Smoking addiction F17.200 Liver cirrhosis K74.60
[2020-06-07 20:28] LABS: Thyroid Stimulating Hormone 3.53 uIU/mL (0.27-4.20)
[2020-06-08] VITALS (7 sets, daily range): BP systolic 100–138; BP diastolic 60–90; PULSE 89–117; RESP 17–20; TEMP 36.7–37.1; O2SAT 94–99
--- NOTE | 2020-06-08 05:00 | USCV_ITS ---
Zak Cookny Age: 49 Gender: M : 1970 Exam Date: 06/08/2020 11:41 Ordering Phys: Hiren Eastman MD Technologist: Ermelinda Andino Exam Location: [facility] [place] Indication: HTN, MARES BP: 117 / 84 HR: 99 Rhythm: Sinus Technical Quality: Adequate MEASUREMENTS (Male / Female) Normal Values 2D ECHO LV Diastolic Diameter PLAX 3.5 cm 4.2 - 5.9 / 3.9 - 5.3 cm LV Systolic Diameter PLAX 2.4 cm LV Chamber Size 3.7 cm IVS Diastolic Thickness 1.1 cm 0.6 - 1.0 / 0.6 - 0.9 cm IVS Systolic Thickness 1.2 cm LVPW Diastolic Thickness 2.1 cm 0.6 - 1.0 / 0.6 - 0.9 cm LVPW Systolic Thickness 2.3 cm RV Chamber Size 2.9 cm LVOT Diameter 2.1 cm LV Ejection Fraction 2D Teich 63.7 % LV Ejection Fraction MOD 2C 58.2 % LV Ejection Fraction 2C AL 57.3 % LA Diameter 3.1 cm LA Width 3.6 cm LA Height 5.4 cm RA Width 2.9 cm RA Height 5.1 cm Aorta at Sinotubular Diameter 2.7 cm DOPPLER AV Peak Velocity 151.0 cm/s LVOT Peak Velocity 113.0 cm/s AV Area Cont Eq vti 3.6 cm squared AV Area Cont Eq pk 2.5 cm squared MV Area PHT 6.7 cm squared Mitral E to A Ratio 0.8 MV E' Velocity 53.0 cm/s Mitral E to MV E' Ratio 4.8 Mitral E to LV E' Lateral Ratio 3.8 Mitral E to LV E' Septal Ratio 6.6 TR Peak Velocity 185.5 cm/s TR Peak Gradient 13.8 mmHg TV Peak E Velocity 55.0 cm/s Right Atrial Pressure 3.0 mmHg Pulmonary Artery Systolic Pressu 16.8 mmHg PV Peak Velocity 81.0 cm/s RV Acceleration Time 0.1 s RV Ejection Time 0.3 s RV AcT/ET 0.3 FINDINGS Left Ventricle Normal left ventricular size. LV systolic function is normal with EF of 55-60%. No regional wall motion abnormalities. Grade 1 diastolic dysfunction Right Ventricle The right ventricle is normal in size and function. Right Atrium The right atrium is normal in size. Left Atrium The left atrium is normal in size. Mitral Valve Structurally normal mitral valve without significant stenosis or prolapse. There is no mitral regurgitation. Aortic Valve Grossly normal without significant sclerosis or stenosis. There is no aortic regurgitation. Tricuspid Valve Structurally normal tricuspid valve without significant stenosis or regurgitation. Insufficient TR jet to calculate RVSP Pulmonic Valve Structurally normal pulmonic valve without significant stenosis. There is no pulmonic regurgitation. Pericardium Normal pericardium without effusion. Aorta Normal ascending aorta dimension. CONCLUSIONS LV systolic function is normal with EF of 55-60% Grade 1 diastolic dysfunction No significant valvular heart disease is seen No comparison studies are available Derrick Verde MD (Electronically Signed) Final Date: 08 June 2020 17:51 S
--- NOTE | 2020-06-08 05:00 | US_ITS ---
WS: [id number] ULTRASOUND-GUIDED THERAPEUTIC AND DIAGNOSTIC PARACENTESIS Procedure, risks, and complications have been explained to the patient. Consent is obtained. Utilizing aseptic technique and 1% buffered lidocaine, a small dermatome was made through which a 5 F rench Yueh catheter was inserted. Approximately 5000 ml of clear peritoneal fluid was obtained witho ut difficulty. No complications encountered. Peritoneal fluid collected for analysis as requested. US/US paracentesis abd w [id number] IMPRESSION: Uncomplicated paracentesis yielding 5000 ml of peritoneal fluid. Study terminat ed as patient became slightly lightheaded.
[2020-06-08 05:35] LABS: Basophils # 0.1 10^3/uL (0.0-0.1); Basophils % 1.3 %; Eosinophils # 0.2 10^3/uL (0.0-0.8); Eosinophils % 2.2 %; Hematocrit 37.5 % (42.0-52.0); Hemoglobin 12.1 g/dL (11.7-16.6); Lymphocytes # 1.7 10^3/uL (0.8-4.8); Lymphocytes % 25.5 %; Mean Corpuscular HGB Conc 32.3 g/dL (30.0-36.0); Mean Corpuscular Hemoglobin 32.3 pg (28.0-34.0); Mean Platelet Volume 11.6 fL (7.4-10.4); Monocytes # 0.7 10^3/uL (0.2-0.9); Monocytes % 9.9 %; Neutrophils # 4.05 10^3/uL (1.8-7.7); Neutrophils % 60.8 %; Nucleated Red Blood Cells % 0 %; Platelet Count 161 10^3/cmm (130-400); Red Blood Count 3.75 10^6/uL (4.1-5.3); Red Cell Distribution Width 14.6 % (12.1-15.1); White Blood Count 6.7 10^3/uL (4.0-10.0)
[2020-06-08 06:36] LABS: Alanine Aminotransferase 20 U/L (0-41); Albumin Level 2.1 g/dL (3.5-5.2); Alkaline Phosphatase 95 IU/L (40-130); Blood Urea Nitrogen 6 mg/dL (6-20); Calcium 7.7 mg/dL (8.5-10.5); Carbon Dioxide 25 mmol/L (22-29); Chloride 101 mmol/L (98-107); Globulin 5.2 g/dL (1.3-4.6); Glucose 113 mg/dL (65-115); Osmolality Calculated 276 mOsm/kg (285-295); Sodium 134 mmol/L (136-145); Total Bilirubin 0.8 mg/dL (0.15-1.2); Total Protein 7.3 g/dL (6.6-8.7)
[2020-06-08 06:39] LABS: Anion Gap 11.7 (5-19); Aspartate Amino Transferase 61 U/L (0-40); Potassium 3.7 mmol/L (3.5-5.1)
[2020-06-08] MEDS: spironolactone 25 mg Tablet PO (08:11)
--- NOTE | 2020-06-08 10:56 | PC.CHAP ---
Pastoral Care Encounter/Spiritual Assessment Type of Contact [] Declined granulator tender visit [] Patient/Family/Request visit [] Outpatient visit [] Follow-up visit [] Physician referral [] Code/Alert [x] Routine visit [] Staff referral [] Actively dying [] Patient sleeping [] Family support [] [] Out of room [] Palliative care [] [x] Receiving care in room [] Pre-surgical visit [] Trauma [] Long length of stay [] ICU visit [] Other: Relational/Emotional Strength [x] Patient feels connected with others/family/visitors/staff [] Distress [] Loneliness/isolation [] Abandonment Spirituality of Patient [x] Person of Poly [] Attends Episcopalian of their Poly [x] Believes in Prayer [] Reads Bible or Episcopalian materials [] There are Spiritual issues to be addressed Director Of Content Marketing Interventions [x] Prayer [x] Active listening [x] Non-anxious presence [x] Spiritual/emotional support [] Crisis/trauma care [x] Spiritual counseling [] Bereavement support [] Provided bereavement packet [] Provided Bible/devotional materials [] Provided toy/stuffed animal, coloring book to patient or family member [] Provided Communion [] Anointing/[place] [] Salvation [x] Completed spiritual assessment [] Other: Impact on Illness or Injury [] Angry [] Fearful [x] Anxious [] Often cries [] Exhaustion [] Unable to work [] Unable to attend methodist [] Unable to walk/stand [] Unable to read [] Unable to drive [] Unable to eat/drink [] Unable to sleep [] Unable to be with family [] Patient intubated [] Other: Summary Blood wurk good, doctor checked, swelling in anckle, has a good attitude going home soon Time spent with patient 10 mins
[2020-06-08 12:27] LABS: Body Fluid Polynuclear #Cells 0.024; Body Fluid WBC 123 /uL; Monocytes # Body Fluid 0.099; RBC, Body Fluid 0 10^3/uL
[2020-06-08 12:52] LABS: Color, Body Fluid PALE YELLOW
[2020-06-08 12:53] LABS: Apprearance, Body Fluid CLOUDY; Fluid Alkaline Phos. 17 IU/L; Total Protein Body Fluid 1.9 g/dL
[2020-06-08 12:54] LABS: Albumin Body Fluid 0.8 g/dL; Cholesterol Body Fluid 23 mg/dL (0-200); LDH Body Fluid 61 U/L; Triglycerides Body Fluid 47 mg/dL (0-150); Uric Acid Body Fluid 6 mg/dL
[2020-06-08 13:01] LABS: Amylase Body Fluid 16 U/L; PATH Referral YES
--- NOTE | 2020-06-08 16:43 | PC.NURSE ---
pt iv taken out and intact. discharge instructions explained and questions answered.
--- NOTE | 2020-06-08 20:27 | PM.DCS ---
Discharge Providers Date of Admission: 06/07/20 16:38 Date of Discharge: June 08, 2020 Attending Provider at Admission: Hiren Eastman Attending Provider at Discharge: Hiren Eastman Diagnoses at Discharge Discharge Diagnosis (1) Abdominal ascites: Status: Acute Qualifiers: Ascites type: due to alcoholic cirrhosis Qualified Code(s): K70.31 - Alcoholic cirrhosis of liver with ascites (2) Leg edema: Status: Acute (3) Smoking addiction: Status: Acute (4) Liver cirrhosis: Status: Acute Reason for Visit Reason for Visit: ABD SWELLING Hospital Course Hospital Course 49-year-old gentleman without significant past medical history apart from multiple traumatic injuries, formerly heavy drinker, but quit alcohol about 4-5 months ago, reportedly had several beers last night, however, noticed severe swelling of lower extremities and his abdomen over the last several days. Reports has had some chronic swelling on right side due to traumatic injury and repair, however, swelling has been now bilateral and significantly worse. This and the abdominal distention made it more difficult for him to walk. He denies abdominal pain. Has had no fever or chills. Has had no headache, nausea vomiting, diarrhea, cough, shortness of breath. He has been bringing up phlegm ever since reducing the amount that he smokes. In the ER noted findings compatible with liver cirrhosis, portal hypertension, large ascites on CT abdomen pelvis. Was observed due to concern that he does not have adequate follow-up and for paracentesis the next morning. Paracentesis performed with 5 L removed. He tolerated the procedure well, and felt much better subsequently. Regained his appetite. No abdominal pain. No difficulty urinating. Ambulating. Requested to return home. Peritoneal fluid studies showing fluid consistent with portal hypertension, without signs of SBP or WORKFORCE DEVELOPMENT ASSISTANT. Remaining studies still pending, including cytology. Please follow-up final results. Due to lower extremity edema, dyspnea exertion was also assessed by echocardiography, although with normal ejection fraction, without signs of right heart failure. He will need additional follow-up with regards to further assessment for etiology of cirrhosis, additional evaluation for possible complications, regular monitoring, and follow-up with hepatology. He is initiated on spironolactone. This was discussed with him in detail and he is in agreement. We also extensively discussed complete abstinence from alcohol. Continue pursuit of smoking cessation. He understands to seek medical attention in case of any concerning symptoms of complications and understands their potentially life-threatening nature. Physical Exam Const: COMMON NORMALS: no acute distress and patient oriented x3 HENMT: COMMON NORMALS: oropharynx normal Neck/C-Spine: COMMON NORMALS: no JVD Resp: COMMON NORMALS: normal respiratory effort and clear to auscultation bilaterally AUSCULTATION: clear to auscultation bilaterally Cardio: COMMON NORMALS: no JVD, regular rhythm, S1 normal heart sound present, S2 normal heart sound present and No murmurs present (Cardio) RHYTHM: regular rhythm HEART SOUNDS: S1 normal heart sound present and S2 normal heart sound present GI: COMMON NORMALS: Soft to palpation and non-tender INSPECTION: Yes abdominal distension (Improved) PALPATION: Yes Soft to palpation Extremity: COMMON NORMALS: no joint enlargement GENERAL: Yes edema (3+) Neuro: COMMON NORMALS: patient oriented x3 and moves all extremities Skin: COMMON NORMALS: no rashes or lesions noted GENERAL SKIN EXAM: no rashes or lesions noted Discharge Data Data Completed and Pending: Completed Studies During Hospitalization Category Date Time Status CT abdomen pelvis w con* [id number] Urge nt Cat Scan 06/07/20 14:58 Completed XR chest 1V davian ble [id number] Urgent Exams 06/07/20 13:51 Completed CV echo complete* [id number] Routine Ultrasound 06/08/20 05:00 [place] b[place] w [id number] Routine Ultrasound 06/08/20 05:00 Completed Pending at discharge Category Date Time Status Anaerobic Culture Routine Lab 06/07/20 15:51 Results Body Fluid Cultur e & GS Routine Lab 06/07/20 15:51 Results Mycobacteria, Cul ture w/Fluor Routi ne Lab 06/07/20 15:51 Received Cytology [PTH] Ro utine Pth 06/07/20 11:45 Received Labs from last 24 hours 06/08/20 06/08/20 06/08/20 11:45 05:22 05:22 WBC 6.7 RBC 3.75 L Hgb 12.1 Hct 37.5 L MCV 100.0 H MCH 32.3 MCHC 32.3 RDW 14.6 Plt Count 161 MPV 11.6 H Neut % (Auto) 60.8 Lymph % (Auto) 25.5 Kern % (Auto) 9.9 Eos % (Auto) 2.2 Baso % (Auto) 1.3 Neut # (Auto) 4.05 Lymph # (Auto) 1.7 Kern # (Auto) 0.7 Eos # (Auto) 0.2 Baso # (Auto) 0.1 Nucleated RBC % (a uto) 0 Nucleated RBCs # 0.0 Differential Comme nt Yes Sodium 134 L Potassium 3.7 Chloride 101 Carbon Dioxide 25 Anion Gap 11.7 BUN 6 Creatinine 0.5 L GFR Calculation 176.0 H Glucose 113 Calculated Osmolal ity 276 L Calcium 7.7 L Total Bilirubin 0.8 AST 61 H ALT 20 Alkaline Phosphata se 95 Total Protein 7.3 Albumin 2.1 L Globulin 5.2 H TSH Fluid Color Pale yellow Fluid Appearance Cloudy Fluid Specific Gra v 1.010 Fluid pH 8.0 Fluid WBC 123 Fluid RBC 0 Fld Polynuclear WB Cs # 0.024 Fld Polynuclear WB Cs % 19.500 Fl Mononucl WBCs # (Auto) 0.099 Fl Mononuclear % A uto 80.500 Fluid Glucose 123.0 Fluid Total Protei n 1.9 Fluid Albumin 0.8 Fluid LDH 61 Fluid Amylase 16 Fluid Alk Phosphat ase 17 Fluid Cholesterol 23 Fluid Triglyceride s 47 Fluid Uric Acid 6 06/07/20 14:30 WBC RBC Hgb Hct MCV MCH MCHC RDW Plt Count MPV Neut % (Auto) Lymph % (Auto) Kern % (Auto) Eos % (Auto) Baso % (Auto) Neut # (Auto) Lymph # (Auto) Kern # (Auto) Eos # (Auto) Baso # (Auto) Nucleated RBC % (a uto) Nucleated RBCs # Differential Comme nt Sodium Potassium Chloride Carbon Dioxide Anion Gap BUN Creatinine GFR Calculation Glucose Calculated Osmolal ity Calcium Total Bilirubin AST ALT Alkaline Phosphata se Total Protein Albumin Globulin TSH 3.53 Fluid Color Fluid Appearance Fluid Specific Gra v Fluid pH Fluid WBC Fluid RBC Fld Polynuclear WB Cs # Fld Polynuclear WB Cs % Fl Mononucl WBCs # (Auto) Fl Mononuclear % A uto Fluid Glucose Fluid Total Protei n Fluid Albumin Fluid LDH Fluid Amylase Fluid Alk Phosphat ase Fluid Cholesterol Fluid Triglyceride s Fluid Uric Acid Vitals: Last Vital Signs Temp 98.7 F 06/08/20 16:42 Pulse 117 H 06/08/20 16:42 Resp 17 06/08/20 16:42 BP 100/60 06/08/20 16:42 Pulse Ox 94 04/01/21 16:42 Discharge Plan Discharge Patient Disposition: Home Condition: Stable Prescriptions: New nicotine 14 mg/24 hr Patch 24 Hour 1 patch transdermal DAILY PRN (Reason: Withdrawal) Qty: 30 RF: 0 spironolactone 25 mg Tablet 25 mg PO DAILY Qty: 30 RF: 0 nicotine (polacrilex) 2 mg lozenge 2 mg buccal Q1H PRN (Reason: nicotine cravings) Qty: 72 RF: 0 Continued Centrum 1 tab PO DAILY RF: 0 Probiotic 1 tab PO DAILY RF: 0 calcium 1 tab PO DAILY RF: 0 Discontinued ibuprofen 200 mg Tablet 200 - 400 mg PO Q6H PRN (Reason: Pain) RF: 0 Discharge Orders: Discharge Order (Routine); Ordered 06/08/20 Ordered By: Hiren Eastman Referrals: [facility] [Other] (You will have an appointment with Dr. Preciado on June 20, 2020 at 1:00 pm. If you need to cancel or reschedule for any reason please call them at [phone].) Discharge Diet: Regular Discharge Activity: Increase activity as tolerated Patient Instructions: Spironolactone (By mouth), How to Stop Smoking (GEN), Cirrhosis (GEN), Abdominal Paracentesis (DC), Ascites (GEN) Activity Restrictions/Additional Instructions: Please follow-up with your primary care provider regarding new diagnosis of liver cirrhosis, additional required work-up including hepatitis panel and other. Ascites. Please have your primary care doctor follow-up pending studies from the hospital. Preliminary studies are not suggestive of abdominal infection. So far they are suggesting that fluid was accumulated in the abdomen due to portal hypertension from liver cirrhosis. Please discuss with your primary care doctor vaccination for hepatitis a and B if you have not been vaccinated. Please have your primary care provider refer you to a gauge and instrument inspector (liver specialist) as additional work-up is needed to determine the cause of the liver cirrhosis, and to assess and follow-up regarding possible serious complications of cirrhosis. Continue to follow-up also for reassessments to keep track if there becomes a need for liver transplantation. Please avoid any NSAIDs like ibuprofen, Aleve, etc. as these may be detrimental to your liver. If taking acetaminophen or acetaminophen continue medications, avoid taking more than 2000 mg/day. Please discuss in further detail with your primary care doctor about additional precautions with regards to liver cirrhosis. Please avoid drinking any alcohol as this may lead to worsening of your condition, decompensation of cirrhosis and life-threatening complications. Please stop smoking. If you experience abdominal pain, fever, worsening distention of the abdomen, inability to tolerate food or drink, and inability to urinate, mental confusion (which may have been due to buildup of ammonia leading to hepatic encephalopathy), vomiting blood, or any other concerning comorbidities, seek medical attention immediately. Discharge Attestations Time Spent in Discharge Care*: greater than 30 min Quality Metrics Clinical Quality Measures During this hospital stay, did patient experience: None Coding Level of Care Code Acute Chg FW DC note Diagnoses Abdominal ascites K70.31 Ascites type: due to alcoholic cirrhosis Leg edema R60.0 Smoking addiction F17.200 Liver cirrhosis K74.60
== END 2020-06-08 16:50 | disposition home or self-care (01) ==
LOC: ER 16:34 → MEDSURG 17:26
PROVIDERS: Admitting Provider Internal Medicine; Emergency Provider Physician Assistant; Visit Provider Internal Medicine
DX: K70.31 Alcoholic cirrhosis of liver with ascites (principal); R60.0 Localized edema; Z87.891 Personal history of nicotine dependence
CPT/HCPCS: 36415; 49083; 71045; 74177; 80053; 80500; 81001; 82042; 82150; 82465; 82945; 83605; 83615; 83880; 83986; 84075; 84157; 84315; 84443; 84478; 84484; 84560; 85025; 85610; 85730; 87015; 87070; 87075; 87116; 87205; 87206; 87801; 88112; 88305; 89050; 93005; 93306; 99285; G0378; Q9967

== ENCOUNTER 2020-06-28 06:41 | Outpatient (CLI) | payer OTHER, SELFPAY ==
--- NOTE | 2020-06-28 07:03 | US_ITS ---
WS: [id number] ULTRASOUND-GUIDED PARACENTESIS CLINICAL INFORMATION: Alcoholic Cirrhosis of Liver with Ascites COMPARISON: None. Procedure Informed consent: The risks, benefits, and alternatives of the procedure were discussed with the jeff ent. Verbal and written consent was obtained. Timeout: A timeout was performed to confirm the correct patient, procedure, and site. Preparation: A suitable skin site was identified. The patient was prepped and draped in usual sterile fashion. Lidocaine 1% was used for local anesthesia. Catheter: 4 Sinhala One-step Yueh catheter. Side: Left Lower quadrant. Fluid Volume: 10,000 ml Color: Pale yellow fluid Fluid sent for requested diagnostic tests. Complications: None. Patient disposition: Discharged from the department in stable condition. US/US paracentesis abd w [id number] IMPRESSION: Uncomplicated ultrasound-guided paracentesis. Removal of 10,000 cc
[2020-06-28 07:26] VITALS: BP 128/79; PULSE 114; RESP 20; TEMP 37.2; O2SAT 98; BMI 34.3
[2020-06-28 08:10] LABS: INR 1.49 (0.8-1.2)
[2020-06-28 10:04] VITALS: BP 137/88; PULSE 100; RESP 18; TEMP 36.7; O2SAT 99
== END 2020-06-28 10:15 | disposition home or self-care (01) ==
LOC: RAD 06:43 → GILAB 06:53
PROVIDERS: Visit Provider Nurse Practitioner Family
DX: K70.31 Alcoholic cirrhosis of liver with ascites (principal)
CPT/HCPCS: 36415; 49083; 85610

== ENCOUNTER 2020-08-10 09:16 | Outpatient (CLI) | payer OTHER, SELFPAY ==
[2020-08-10 09:39] VITALS: BMI 33.9
--- NOTE | 2020-08-10 10:14 | US_ITS ---
WS: [id number] ULTRASOUND-GUIDED PARACENTESIS CLINICAL INFORMATION: Ascites COMPARISON: None. Procedure Informed consent: The risks, benefits, and alternatives of the procedure were discussed with the jeff ent. Verbal and written consent was obtained. Timeout: A timeout was performed to confirm the correct patient, procedure, and site. Preparation: A suitable skin site was identified. The patient was prepped and draped in usual sterile fashion. Lidocaine 1% was used for local anesthesia. Catheter: 4 American One-step Yueh catheter. Side: Left Lower quadrant. Fluid Volume: 10,000 ml Color: Clear yellow DISPOSITION: Discarded safely. Complications: None. Patient disposition: Discharged from the department in stable condition. US/US paracentesis abd w [id number] IMPRESSION: Uncomplicated ultrasound-guided paracentesis. Removal of 10,000 cc ascites
[2020-08-10 11:54] VITALS: BP 115/93; PULSE 100; RESP 16; O2SAT 97
[2020-08-10] MEDS: albumin 37.5 GM/150 ML VIAL IV (12:13)
--- NOTE | 2020-08-10 13:06 | PC.NURSE ---
Informed pt's PCP, Virginia Preciado SURGERY NURSE, volume drained 9800 ml. Virginia ordered 37.5mg Albumin IV infusion. Informed Florencio Ruano of 9800 ml volume drained. Pt tolerated procedure well and weighed 228lb on our scales prior to discharge.
== END 2020-08-10 09:17 | disposition home or self-care (01) ==
LOC: GILAB 09:17
PROVIDERS: Visit Provider Nurse Practitioner Family
DX: R18.8 Other ascites (principal)
CPT/HCPCS: 49083; 96365; P9047